=== PATIENT | female | born 1960 | race Caucasian/White ===

== ENCOUNTER 2017-08-06 17:53 | Inpatient (IN) | payer OTHER ==
[~2017-08-06] VITALS: Ht 170.2 cm; Wt 90.3 kg
--- NOTE | 2017-08-06 17:53 | NUR ---
C/O L SIDED CHEST PAIN RADIATES TO LEFT SHOULDER STARTED 6 HOURS AGO. PLACED ON MONITOR AWAITING MD ORDER.
[2017-08-06 18:20] LABS: BASOPHILS % (AUTO) 0.7 % (0.0-2.0); EOSINOPHILS # (AUTO) 0.1 /CMM (0.0-0.7); EOSINOPHILS % (AUTO) 1.2 % (0.0-6.0); HEMATOCRIT 40 % (33-45); HEMOGLOBIN 13.5 g/dL (11.5-14.8); LYMPHOCYTES # (AUTO) 2.3 /CMM (0.8-4.8); LYMPHOCYTES % (AUTO) 36.7 % (20.0-44.0); MEAN CORPUSCULAR HEMOGLOBIN 30 PG (26.0-33.0); MEAN CORPUSCULAR HGB CONC 34 g/dl (31.0-36.0); MEAN CORPUSCULAR VOLUME 90 fL (82-100); MONOCYTES # (AUTO) 0.5 /CMM (0.1-1.30); MONOCYTES % (AUTO) 8.2 % (2.0-12.0); NEUTROPHILS # (AUTO) 3.5 /CMM (1.8-8.9); NEUTROPHILS % (AUTO) 53.2 % (43.0-81.0); PLATELET COUNT (AUTO) 249 /CMM (150-450); RDW COEFFICIENT OF VARIATION 12.1 (11.5-15.0); RED BLOOD CELL COUNT(AUTO) 4.48 MIL/uL (4.0-5.2); WHITE BLOOD COUNT (AUTO) 6.4 K/uL (4.3-11.0)
--- NOTE | 2017-08-06 18:23 | NUR ---
LAC #20 IV ACCESS. BLOOD SAMPLE COLLECTED SENT TO LAB
[2017-08-06] MEDS ORDERED: MORPHINE SULFATE INJ 2 MG/ML DISP.SYRIN ONE (18:25)
[2017-08-06] MEDS ORDERED: ONDANSETRON HCL/PF 4 MG/2 ML VIAL ONE (18:25)
[2017-08-06] MEDS ORDERED: NITROGLYCERIN PACKET 1 GM PACKET ONE (18:26)
[2017-08-06] MEDS ORDERED: ONDANSETRON HCL/PF 4 MG/2 ML VIAL IV ONE (18:30)
[2017-08-06] MEDS ORDERED: MORPHINE SULFATE INJ 2 MG/ML DISP.SYRIN IV ONE (18:30)
[2017-08-06] MEDS ORDERED: NITROGLYCERIN PACKET 1 GM PACKET TD ONE (18:30)
[2017-08-06] MEDS ORDERED: IV NS 0.9% 500 ML BAG IV ONE (18:30)
[2017-08-06 18:34] LABS: CALCIUM, SERUM 9.3 mg/dL (8.5-10.1); CARBON DIOXIDE 29 mmol/L (21-32); CHLORIDE 104 mmol/L (98-107); CREATININE 0.7 mg/dL (0.6-1.3); GLUCOSE 106 mg/dL (74-106); POTASSIUM 4.1 mmol/L (3.5-5.1); SODIUM SERUM 138 mmol/L (136-145); UREA NITROGEN, BLOOD 15 mg/dL (7-18)
[2017-08-06 18:35] LABS: INR 0.9 (0.87-1.13); PROTHROMBIN TIME 9.4 SECS (9.5-12.7)
[2017-08-06 18:37] LABS: TROPONIN I < 0.017 ng/mL (0.00-0.056)
[2017-08-06] MEDS ORDERED: [UNRECOGNIZED DRUG - OTHER] SL (18:45)
[2017-08-06] MEDS ORDERED: IOHEXOL-350 100 ML VIAL IV ONE (18:49)
[2017-08-06] MEDS ORDERED: IV NS 0.9% 250 ML IV ONE (18:49)
--- NOTE | 2017-08-06 19:00 | NUR ---
PT TAKEN TO CT SCAN
--- NOTE | 2017-08-06 19:05 | NUR ---
REPORT RECEIVED FROM NOAM DE LEÓN FOR CHLOE.
--- NOTE | 2017-08-06 19:11 | NUR ---
PT BACK FROM CT.
[2017-08-06] MEDS ORDERED: FENTANYL PF 100MCG/2ML AMPUL ONE (19:32)
[2017-08-06] MEDS ORDERED: ASPIRIN 325 MG TABLET PO ONE (20:00)
[2017-08-06] MEDS ORDERED: FENTANYL PF 100MCG/2ML AMPUL IV ONE (20:00)
--- NOTE | 2017-08-06 20:14 | NUR ---
REPORT GIVEN TO TRU FOR CHLOE. PT ADMIT TO TELE [phone].
--- NOTE | 2017-08-06 20:55 | NUR ---
PT TRANSPORTED VIA [facility] TO [place] [id number] WITH RN, ACLS PROTOCOL. VSS.
--- NOTE | 2017-08-06 20:59 | NUR ---
Catherine montalvo in ED - 08/06/17 at [address] MERIDA, CALLED TRU TO ENDORSE ASPIRIN 325MG PO.
[2017-08-06 21:00] VITALS: BP 108/68
[2017-08-06] MEDS ORDERED: ONDANSETRON HCL/PF 4 MG/2 ML VIAL IVP PRN (21:00)
[2017-08-06] MEDS ORDERED: MAGNESIUM HYDROXIDE 30 ML UDC PO PRN (21:00)
[2017-08-06] MEDS ORDERED: MORPHINE SULFATE INJ 2 MG/ML DISP.SYRIN IV PRN (21:00)
[2017-08-06] MEDS ORDERED: NITROGLYCERIN 0.4 MG/TAB BOTTLE SL PRN (21:00)
[2017-08-06] MEDS ORDERED: Z GUARD REMEDY 2 OZ OINT TP PRN (21:00)
[2017-08-06] MEDS: ASPIRIN 81 MG TAB.CHEW PO SCH (21:00)
[2017-08-06] MEDS ORDERED: MAG HYDROX/AL HYDROX/SIMETH 30 ML UDC PO PRN (21:00)
[2017-08-06] MEDS ORDERED: ZOLPIDEM TARTRATE 5 MG TABLET PO PRN (21:00)
[2017-08-06] MEDS ORDERED: HYDROCODONE/APAP 5/325MG 1 EACH TABLET PO PRN (21:00)
[2017-08-06] MEDS ORDERED: ACETAMINOPHEN 325 MG TABLET PO PRN (21:00)
--- NOTE | 2017-08-06 21:00 | NUR ---
TELE/RN OPENING NOTES PATIENT IS ANEW ADMITTED PATIENT RECEIVED FROM ER ARRIVED ON A GURNEY BUT CAN TRANSFER SELF TO BED, ABLE TO WALK W/ SUPERVISION, ALERT, ORIENTED, SPEAKS LITTLE KYRGYZ, RECIVED INFORMATION BY VP OF PRODUCT, REPORTED CHEST PAIN ON LEFT SIDE RADIATING TO LEFT ARM . DR. EID WILL F/U REPORTED PAIN 5/10. BLOOD PRESSURE TAKEN 108/68, O2 SAT IN ROOM AIR AT 99% , TEMP AT 98.1, RESPIRATION EVEN AND UNLABORED, ROOM ORIENTATION PROVIDED. TELE MONITORING W/ SR 60 . LEFT AC GAUGE 20 PATENT W/ NO S/S OF INFILTRATION.MEDICATION RECONCILED BY MD, CALL LIGHTS WITHIN REACH, SKIN INTACT. BELONGINGS CHECK AND REQUESTING PATIENT BELONGING KEPT IN SAFE W/ CAR KEYS BE GIVEN TO THE SON. WILL CONTINUE TO MONITOR.
[2017-08-06] MEDS ORDERED: ASPIRIN 325 MG TABLET ONE (21:04)
--- NOTE | 2017-08-06 21:10 | NUR ---
TELE/RN NOTES ER NURSE GLADYS CAME AND INFORMED THAT PATIENT WAS GIVEN ASPIRIN 325 MG PO.
[2017-08-06] MEDS ORDERED: IBUPROFEN 600 MG TABLET PO PRN (22:30)
[2017-08-06 22:35] VITALS: BP 108/68
[2017-08-06] MEDS ORDERED: ASPIRIN EC 81 MG TABLET.DR PO ONE (22:42)
[2017-08-07] VITALS: BP 99/59
[2017-08-07 04:00] VITALS: BP 110/62
--- NOTE | 2017-08-07 05:29 | NUR ---
tele/rn notes WILL F/U REGARDING DIET ORDER. WITH POSSIBLE STRESS TEST IN AM ON MD EID NOTES,
[2017-08-07 06:30] LABS: BASOPHILS % (AUTO) 0.4 % (0.0-2.0); EOSINOPHILS # (AUTO) 0.1 /CMM (0.0-0.7); EOSINOPHILS % (AUTO) 1.5 % (0.0-6.0); HEMATOCRIT 36 % (33-45); HEMOGLOBIN 12.1 g/dL (11.5-14.8); LYMPHOCYTES # (AUTO) 1.9 /CMM (0.8-4.8); MEAN CORPUSCULAR HEMOGLOBIN 31 PG (26.0-33.0); MEAN CORPUSCULAR HGB CONC 34 g/dl (31.0-36.0); MEAN CORPUSCULAR VOLUME 92 fL (82-100); MONOCYTES # (AUTO) 0.4 /CMM (0.1-1.30); MONOCYTES % (AUTO) 7.9 % (2.0-12.0); NEUTROPHILS # (AUTO) 2.6 /CMM (1.8-8.9); NEUTROPHILS % (AUTO) 52.2 % (43.0-81.0); PLATELET COUNT (AUTO) 209 /CMM (150-450); RDW COEFFICIENT OF VARIATION 13.3 (11.5-15.0); RED BLOOD CELL COUNT(AUTO) 3.94 MIL/uL (4.0-5.2); WHITE BLOOD COUNT (AUTO) 4.9 K/uL (4.3-11.0)
[2017-08-07 06:43] LABS: CALCIUM, SERUM 8.7 mg/dL (8.5-10.1); CREATININE 0.7 mg/dL (0.6-1.3); MAGNESIUM 2.1 mg/dL (1.8-2.4); PHOSPHORUS 4.1 mg/dL (2.5-4.9); POTASSIUM 4.1 mmol/L (3.5-5.1)
--- NOTE | 2017-08-07 06:47 | NUR ---
TELE/RN CLOSING NOTES PATIENT IN BED, RESTING COMFORTABLY IN BED, ABLE TO SLEEP 6 -7 HOURS. NO PAIN VERBALIZED, CALM AND COOPERATIVE TO CARE. PER MD POSSIBLE TO HAVE STRESS TEST, NO DIET ORDER AT THIS TIME, WILL F/U IN AM, CALL LIGHTS WITHIN REACH, BED IN LOCK POSITION. WILL ENDORSE TO AM RN FOR CHLOE.
--- NOTE | 2017-08-07 06:57 | NUR ---
TELE/RN NOTES' MD ORDER DIET CARDIAC, ORDER CARRIED OUT. INFORM PATIENT RIGHT HAND NUMBNESS, VITAL SIGNS NORMAL, DENIES PAIN.
--- NOTE | 2017-08-07 07:20 | NUR ---
telecommunications engineer initial notes Received patient in bed, awake, head of bed elevated, no SOB or distress noted. on room air and tolerated well. Alert and oriented ax 4 , verbally responsive and able to make needs known. 02 saturation of 100%. Patient is NPO for stress test by Dr. Moise. On tele monitor SR heart rate of 71, no complaint of pain at this time, nor chest pain. Kept patient clean and comfortable in bed, call light with in patient reach, will continue to monitor accordingly.
[2017-08-07 07:53] LABS: TROPONIN I < 0.017 ng/mL (0.00-0.056)
[2017-08-07 08:00] VITALS: BP 114/67
[2017-08-07] MEDS ORDERED: METOPROLOL TARTRATE 25 MG TABLET PO SCH (09:00)
[2017-08-07] MEDS: ASPIRIN 81 MG TAB.CHEW PO SCH (09:56)
[2017-08-07] MEDS ORDERED: REGADENOSON 0.4 MG/5 ML DISP.SYRIN IVP ONE (10:30)
[2017-08-07 16:00] VITALS: BP 127/73
[2017-08-07] MEDS ORDERED: ASPI81TA2 PO (17:07)
--- NOTE | 2017-08-07 17:35 | NUR ---
ms grinder set up operator internal notes Discharge instructions given to patient and able to understand with the help of charge nurse for translation. Signed discharge paper and belonging list. Discontinued IV access and pressured applied. Skin is intact. Pneumonia and flu vaccine not given due to refusal, explained the risk and benefits x 3 and still refused. Vital signs checked and recorded. Patient cleared by Dr. Moise education reporter for discharge. Patient left via ambulatory with no signs or complaint of pain or discomfort, nor chest pain. Left the hospital in stable condition. MD and charge nurse made aware.
== END 2017-08-07 17:30 | disposition home or self-care (01) | DRG 48 ==
LOC: ER 17:55 → TELE 20:35 → MED 08-07 08:38
PROVIDERS: ADMIT Internal Medicine; ATTEND Internal Medicine
DX: G62.9 Polyneuropathy, unspecified (principal); E11.65 Type 2 diabetes mellitus with hyperglycemia; I10 Essential (primary) hypertension; M94.0 Chondrocostal junction syndrome [Tietze]; E04.1 Nontoxic single thyroid nodule
CPT/HCPCS: 36415; 76536-TC; 80048-TC; 80061-TC; 83735-TC; 84100-TC; 84439-TC; 84443-TC; 84484-TC; 85025-TC; 85730-TC; 87081-TC; 93307-TC; A4606; A9502; J2270; J2405; J2785; J3010; J7040; J7050; Q9967; Z7610